=== PATIENT | male | born 1985 | race Caucasian/White ===

== ENCOUNTER 2020-06-03 08:48 | Day surgery (SDC) | payer OTHER ==
[2020-06-03] MEDS ORDERED: NEURONTIN300 MG PO (13:28)
[2020-06-03] MEDS ORDERED: ULTRAM50 MG PO (13:28)
[2020-06-03] MEDS ORDERED: TYLENOL ARTHRI650 MG PO (13:28)
[2020-06-03] MEDS ORDERED: MIRALAX17 GM PO (13:28)
== END 2020-06-03 16:49 | disposition home or self-care (01) ==
LOC: EDSEX 08:48 → CIR.AMB 08:48
PROVIDERS: ATTEND Surgery
DX: K40.90 Unilateral inguinal hernia, without obstruction or gangrene, not specified as recurrent (principal); D17.6 Benign lipomatous neoplasm of spermatic cord; K42.9 Umbilical hernia without obstruction or gangrene; Z20.828 Contact with and (suspected) exposure to other viral communicable diseases